=== PATIENT | female | born 1935 | race Hispanic/Latino ===

== ENCOUNTER 2022-02-18 16:36 | Inpatient (IN) | payer OTHER ==
[~2022-02-18] VITALS: Ht 157.5 cm; Wt 61.9 kg
[~2022-02-18 16:36] MED LIST: ETOMIDATE 20MG VIAL ONE; SUCCINYLCHOLINE CHLORIDE 20 MG/ML 10 ML VIAL ONE
[2022-02-18 22:02] VITALS: BP 110/48
[2022-02-18] MEDS ORDERED: ACETAMINOPHEN 650 MG SUPPOSITORY RC PRN (23:00)
[2022-02-18] MEDS ORDERED: ACETAMINOPHEN 325 MG TAB PO PRN (23:00)
[2022-02-18] MEDS ORDERED: LACTATED RINGERS 1000ML 1,000 ML IV SCH (23:00)
[2022-02-18] MEDS ORDERED: ALBUTEROL 0.083% 2.5 MG/3 ML INH IH PRN (23:00)
[2022-02-19] VITALS (24 sets, daily range): BP systolic 82–154; BP diastolic 29–88
[2022-02-19] MEDS ORDERED: BUME1TAB6 PO (02:42)
[2022-02-19] MEDS ORDERED: MONT-39 PO (02:42)
[2022-02-19] MEDS ORDERED: CILO100T PO (02:42)
[2022-02-19] MEDS ORDERED: ATOR40TA71 PO (02:42)
[2022-02-19] MEDS ORDERED: ISOS30TA92 PO (02:42)
[2022-02-19] MEDS ORDERED: CLOP75TA32 PO (02:42)
[2022-02-19] MEDS ORDERED: NITR0.4T50 PO (02:42)
[2022-02-19] MEDS ORDERED: HYDR-3421 PO (02:42)
[2022-02-19] MEDS ORDERED: AMLO-257 PO (02:42)
[2022-02-19] MEDS ORDERED: FENO160T16 PO (02:42)
[2022-02-19 03:57] LABS: HEMATOCRIT 30.7 % (36-48); MEAN CORPUSCULAR HGB CONC 31.3 g/dL (32.0-36.0); RED BLOOD CELL COUNT(AUTO) 3.1 MIL/uL (4.00-5.50); RED CELL DISTRIBUTION WIDTH 16.5 % (11.0-15.5); WHITE BLOOD COUNT (AUTO) 4.3 K/uL (4.8-10.8)
[2022-02-19 04:08] LABS: INR 1.21 (0.85-1.15)
[2022-02-19 04:10] LABS: CREATININE 2.8 mg/dL (0.5-1.5); MAGNESIUM 1.7 mg/dL (1.80-2.40); PHOSPHORUS 4.3 mg/dL (2.5-4.9)
[2022-02-19] MEDS ORDERED: MAGNESIUM 2GM PREMIX 50ML 50 ML IV SCH (05:00)
[2022-02-19 08:41] LABS: ABG BASE EXCESS 3.8 mmol/L (-2.0-3.0); ABG HCO3 29.1 mmol/L (21.0-28.0); ABG OXYGEN SATURATION 91.4 % (95.0-99.0); ABG PCO2 47 mmHg (32-45)
[2022-02-19] MEDS ORDERED: EPINEPHRINE PF 1MG AMP 10 MG in 0.9% NACL 250ML 240 ML IV PRN ×2 (10:30→14:00)
[2022-02-19] MEDS ORDERED: NOREPINEPHRINE BITARTRATE 8 MG in 0.9% NACL 250ML 250 ML IV PRN (10:30)
[2022-02-19] MEDS ORDERED: AMINOCAPROIC ACID 5,000MG VIAL 15,000 MG in 0.9% NACL 500ML IV.SOLN 420 ML IV PRN (10:30)
[2022-02-19] MEDS ORDERED: LIDOCAINE PF 100MG/5ML (2%) SYRINGE 5ML ONE ×3 (11:54→12:00)
[2022-02-19] MEDS ORDERED: ESMOLOL HCL 10 MG/ML 10 ML VIAL ONE (11:54)
[2022-02-19] MEDS ORDERED: PROTAMINE SULFATE 10 MG/ML 25ML VIAL IV ONE (11:54)
[2022-02-19] MEDS ORDERED: HEPARIN 10,000 UNIT/10ML (1,000 UNIT/ML) VIAL ONE (11:54)
[2022-02-19] MEDS ORDERED: EPINEPHRINE PF 1MG AMP ONE (11:54)
[2022-02-19] MEDS ORDERED: AMINOCAPROIC ACID 5,000MG VIAL ONE ×2 (11:54→12:03)
[2022-02-19] MEDS ORDERED: SODIUM BICARB 50MEQ 50ML VIAL 150 ML ONE (11:54)
[2022-02-19] MEDS ORDERED: NOREPINEPHRINE BITARTRATE 1 MG/1 ML ML IV ONE (11:54)
[2022-02-19] MEDS ORDERED: FENTANYL CITRATE PF 50 MCG/1 ML 20ML VIAL IJ ONE (11:56)
[2022-02-19] MEDS ORDERED: ROCURONIUM 10MG/1ML SYR 10 MG/ML ML ONE (11:56)
[2022-02-19] MEDS ORDERED: MIDAZOLAM HCL 1 MG/ML 2ML VIAL ONE (11:56)
[2022-02-19] MEDS ORDERED: PROPOFOL 10 MG/ML 20ML VIAL IV ONE (11:56)
[2022-02-19] MEDS ORDERED: KETAMINE 50MG/ML SYRINGE 50 MG/ML DISP.SYRIN IV ONE (11:57)
[2022-02-19] MEDS ORDERED: SODIUM BICARB 50MEQ 50ML VIAL 50 ML ONE (12:03)
[2022-02-19] MEDS ORDERED: NITROGLYCERIN 50MG/D5W 250ML 1 BOT ONE (12:08)
[2022-02-19] MEDS ORDERED: CEFAZOLIN SODIUM 1 GM VIAL ONE ×3 (13:18→13:28)
[2022-02-19] MEDS ORDERED: PAPAVERINE HCL 30 MG/ML 2ML VIAL ONE (13:26)
[2022-02-19 13:35] LABS: ABG BASE EXCESS -0.3 mmol/L (-2.0-3.0); ABG HCO3 23.4 mmol/L (21.0-28.0); ABG OXYGEN SATURATION 99.8 % (95.0-99.0); ABG PCO2 34 mmHg (32-45)
[2022-02-19] MEDS ORDERED: 0.9%NACL 1000ML 1,000 ML IV SCH (14:00)
[2022-02-19] MEDS ORDERED: PROPOFOL 1000 MG/100 ML 100 ML IV PRN (14:00)
[2022-02-19] MEDS ORDERED: ONDANSETRON 4MG INJ IV PRN (14:00)
[2022-02-19] MEDS ORDERED: NITROGLYCERIN 50MG/D5W 250ML 250 BOT IV SCH (14:00)
[2022-02-19] MEDS ORDERED: MORPHINE 2 MG SYG IV PRN ×2 (14:00→14:30)
[2022-02-19] MEDS ORDERED: DEXTROSE 50%-WATER 50 ML DISP.SYRIN IV PRN (14:00)
[2022-02-19] MEDS ORDERED: CALCIUM GLUC 1GM 1 GM in 0.9%NACL 50ML 50 ML IV PRN (14:00)
[2022-02-19] MEDS ORDERED: ACETAMINOPHEN 650 MG SUPPOSITORY RC PRN (14:00)
[2022-02-19] MEDS ORDERED: POTASSIUM CHLORIDE 20MEQ/100ML 100 ML IV PRN (14:00)
[2022-02-19] MEDS ORDERED: NOREPINEPHRIN 4MG/NS 250ML 250 ML IV PRN (14:00)
[2022-02-19] MEDS ORDERED: TRAMADOL HCL 50 MG TABLET PO PRN (14:00)
[2022-02-19] MEDS ORDERED: 0.9%NACL 10ML VIAL IVP PRN (14:00)
[2022-02-19] MEDS ORDERED: INSULIN REGULAR, HUMAN 3ML 100 UNIT in 0.9%NACL 100ML 99 ML IV SCH ×2 (14:00)
[2022-02-19] MEDS ORDERED: AMINOCAPROIC ACID 5,000MG VIAL 15,000 MG in 0.9% NACL 250ML 250 ML IV SCH (14:00)
[2022-02-19] MEDS ORDERED: POTASSIUM PHOS 15 mMOL+NS250ML 250 ML IV PRN (14:00)
[2022-02-19] MEDS ORDERED: GLUCAGON 1MG KIT 1 MG ML IM PRN (14:00)
[2022-02-19] MEDS ORDERED: 0.9% NACL 500ML IV.SOLN 500 ML IV SCH (14:00)
[2022-02-19] MEDS ORDERED: ALBUMIN (HUMAN) 5% 250 ML IV PRN (14:00)
[2022-02-19] MEDS ORDERED: 0.9%NACL 50ML 50 ML IV SCH (14:30)
[2022-02-19 16:09] LABS: ABG BASE EXCESS -2.4 mmol/L (-2.0-3.0); ABG HCO3 21.7 mmol/L (21.0-28.0); ABG OXYGEN SATURATION 99.7 % (95.0-99.0); ABG PCO2 34 mmHg (32-45)
[2022-02-19 16:16] LABS: ABG BASE EXCESS 3.2 mmol/L (-2.0-3.0); ABG HCO3 27.4 mmol/L (21.0-28.0); ABG OXYGEN SATURATION 99.7 % (95.0-99.0); ABG PCO2 40 mmHg (32-45)
[2022-02-19] MEDS ORDERED: ASPIRIN 81MG CHEW TAB NG SCH (17:00)
[2022-02-19 17:11] LABS: ABG BASE EXCESS -5.2 mmol/L (-2.0-3.0); ABG HCO3 18.8 mmol/L (21.0-28.0); ABG OXYGEN SATURATION 99.4 % (95.0-99.0); ABG PCO2 32 mmHg (32-45)
[2022-02-19 17:18] LABS: ABG OXYGEN SATURATION 88.3 % (95.0-99.0); BASE EXCESS,VENOUS BLOOD GAS -4.5 (-2.0-3.0); HCO3,VENOUS BLOOD GAS 20.5 (21.0-28.0); PCO2,VENOUS BLOOD GAS 37 (32-45); PH,VENOUS BLOOD GAS 7.356 (7.350-7.450)
[2022-02-19] MEDS: SODIUM BICARB 50MEQ 50ML VIAL IV PRN ×3 (17:27→18:24)
[2022-02-19 17:31] LABS: HEMATOCRIT 30.1 % (36-48); MEAN CORPUSCULAR HEMOGLOBIN 29.8 pg (27.0-33.0); MEAN CORPUSCULAR HGB CONC 32.2 g/dL (32.0-36.0); MEAN CORPUSCULAR VOLUME 92.6 fL (79-99); PLATELET COUNT (AUTO) 66 K/uL (130-400); RED BLOOD CELL COUNT(AUTO) 3.25 MIL/uL (4.00-5.50); RED CELL DISTRIBUTION WIDTH 17.7 % (11.0-15.5); WHITE BLOOD COUNT (AUTO) 20.5 K/uL (4.8-10.8)
[2022-02-19 17:42] LABS: INR 1.92 (0.85-1.15); PROTHROMBIN TIME 19.7 SEC (9.6-11.6)
[2022-02-19 17:46] LABS: CREATININE 2.3 mg/dL (0.5-1.5); MAGNESIUM 1.8 mg/dL (1.80-2.40); PHOSPHORUS 4.8 mg/dL (2.5-4.9); POTASSIUM 3.6 mmol/L (3.5-5.1)
[2022-02-19 17:47] LABS: CHOLESTEROL 66 mg/dL (<200); HDL CHOLESTEROL 30 mg/dL (35-85); LDL DIRECT 29 mg/dL (0-99); TRIGLYCERIDES 69 mg/dL (30-200)
[2022-02-19] MEDS: MAGNESIUM 2GM PREMIX 50ML 50 ML IV PRN (18:24)
[2022-02-19 18:34] LABS: ABG BASE EXCESS 2.4 mmol/L (-2.0-3.0); ABG HCO3 24.6 mmol/L (21.0-28.0); ABG OXYGEN SATURATION 98.8 % (95.0-99.0); ABG PCO2 30 mmHg (32-45)
[2022-02-19] MEDS: CALCIUM GLUC 1GM/10ML VIAL IVPB SCH (18:45)
[2022-02-19 20:01] LABS: ABG BASE EXCESS -0.4 mmol/L (-2.0-3.0); ABG HCO3 22.9 mmol/L (21.0-28.0); ABG OXYGEN SATURATION 98.7 % (95.0-99.0); ABG PCO2 33 mmHg (32-45)
[2022-02-19] MEDS: ATORVASTATIN 40 MG TABLET PO SCH (21:00)
[2022-02-19 21:22] LABS: ABG BASE EXCESS -0.4 mmol/L (-2.0-3.0); ABG HCO3 23.3 mmol/L (21.0-28.0); ABG OXYGEN SATURATION 98.7 % (95.0-99.0); ABG PCO2 35 mmHg (32-45)
[2022-02-19] MEDS: CEFAZOLIN SODIUM 1 GM VIAL IV SCH (21:30)
[2022-02-19] MEDS: FAMOTIDINE 20MG VIAL IV SCH (21:31)
[2022-02-19 22:27] LABS: ABG BASE EXCESS -0.3 mmol/L (-2.0-3.0); ABG HCO3 23.6 mmol/L (21.0-28.0); ABG OXYGEN SATURATION 98.5 % (95.0-99.0); ABG PCO2 35 mmHg (32-45)
[2022-02-19] MEDS: NOREPINEPHRIN 8MG/250ML NS PMX 250 ML IV PRN (22:52)
[2022-02-19 22:56] LABS: POTASSIUM 3.7 mmol/L (3.5-5.1)
[2022-02-19 23:01] LABS: MAGNESIUM 2.4 mg/dL (1.80-2.40)
[2022-02-19 23:32] LABS: ABG BASE EXCESS 0.1 mmol/L (-2.0-3.0); ABG HCO3 24.8 mmol/L (21.0-28.0); ABG OXYGEN SATURATION 98.6 % (95.0-99.0); ABG PCO2 40 mmHg (32-45)
[2022-02-20] VITALS (110 sets, daily range): BP systolic 54–170; BP diastolic 0–65
[2022-02-20 00:27] LABS: ABG BASE EXCESS -0.9 mmol/L (-2.0-3.0); ABG HCO3 23.2 mmol/L (21.0-28.0); ABG OXYGEN SATURATION 98.4 % (95.0-99.0); ABG PCO2 36 mmHg (32-45)
[2022-02-20] MEDS: SODIUM BICARB 50MEQ 50ML VIAL IV PRN (00:51)
[2022-02-20 01:37] LABS: ABG BASE EXCESS 3.6 mmol/L (-2.0-3.0); ABG OXYGEN SATURATION 98.5 % (95.0-99.0); ABG PCO2 36 mmHg (32-45)
[2022-02-20] MEDS: CALCIUM GLUC 1GM/10ML VIAL IVPB SCH (01:48)
[2022-02-20 02:51] LABS: ABG BASE EXCESS 1.4 mmol/L (-2.0-3.0); ABG HCO3 24.6 mmol/L (21.0-28.0); ABG OXYGEN SATURATION 98.5 % (95.0-99.0); ABG PCO2 33 mmHg (32-45)
[2022-02-20] MEDS: CEFAZOLIN SODIUM 1 GM VIAL IV SCH ×2 (03:41→10:54)
[2022-02-20 03:55] LABS: HEMATOCRIT 24.5 % (36-48); MEAN CORPUSCULAR HGB CONC 33.5 g/dL (32.0-36.0); MEAN CORPUSCULAR VOLUME 89.7 fL (79-99); RED BLOOD CELL COUNT(AUTO) 2.73 MIL/uL (4.00-5.50); RED CELL DISTRIBUTION WIDTH 19.8 % (11.0-15.5); WHITE BLOOD COUNT (AUTO) 15.5 K/uL (4.8-10.8)
[2022-02-20 04:02] LABS: ABG BASE EXCESS 1.2 mmol/L (-2.0-3.0); ABG HCO3 23.6 mmol/L (21.0-28.0); ABG PCO2 31 mmHg (32-45)
[2022-02-20 04:09] LABS: INR 1.51 (0.85-1.15); PROTHROMBIN TIME 15.9 SEC (9.6-11.6)
[2022-02-20 04:11] LABS: PARTIAL THROMBOPLASTIN TIME 33.7 SEC (26.3-35.5)
[2022-02-20 04:14] LABS: CREATININE 2.8 mg/dL (0.5-1.5); MAGNESIUM 2.5 mg/dL (1.80-2.40); PHOSPHORUS 4.2 mg/dL (2.5-4.9); POTASSIUM 3.9 mmol/L (3.5-5.1)
[2022-02-20 05:28] LABS: ABG BASE EXCESS 4.1 mmol/L (-2.0-3.0); ABG HCO3 27.3 mmol/L (21.0-28.0); ABG OXYGEN SATURATION 98.7 % (95.0-99.0); ABG PCO2 35 mmHg (32-45)
[2022-02-20 07:41] LABS: ABG BASE EXCESS 0.2 mmol/L (-2.0-3.0); ABG HCO3 24.5 mmol/L (21.0-28.0); ABG OXYGEN SATURATION 97.2 % (95.0-99.0); ABG PCO2 38 mmHg (32-45)
[2022-02-20] MEDS: TRAMADOL HCL 50 MG TABLET PO PRN ×3 (08:30→21:07)
[2022-02-20 09:42] LABS: ABG BASE EXCESS -1.5 mmol/L (-2.0-3.0); ABG HCO3 23.1 mmol/L (21.0-28.0); ABG OXYGEN SATURATION 94.5 % (95.0-99.0); ABG PCO2 38 mmHg (32-45)
[2022-02-20 09:48] LABS: ABG OXYGEN SATURATION 98.6 % (95.0-99.0); ABG PCO2 39 mmHg (32-45)
[2022-02-20 10:19] LABS: HEMATOCRIT 21.4 % (36-48); MEAN CORPUSCULAR HEMOGLOBIN 30.5 pg (27.0-33.0); MEAN CORPUSCULAR HGB CONC 33.2 g/dL (32.0-36.0); MEAN CORPUSCULAR VOLUME 91.8 fL (79-99); PLATELET COUNT (AUTO) 68 K/uL (130-400); RED BLOOD CELL COUNT(AUTO) 2.33 MIL/uL (4.00-5.50); RED CELL DISTRIBUTION WIDTH 20.3 % (11.0-15.5); WHITE BLOOD COUNT (AUTO) 13.1 K/uL (4.8-10.8)
[2022-02-20 10:27] LABS: CREATININE 2.9 mg/dL (0.5-1.5); POTASSIUM 4.2 mmol/L (3.5-5.1)
[2022-02-20] MEDS: ASPIRIN 81MG CHEW TAB PO SCH (10:54)
[2022-02-20 10:58] LABS: MAN.DIFF COMMENT-IMPRESSION MANUAL DIFFERENTIAL; MONOCYTES % (MANUAL) 2 % (2-9); PLATELET MORPHOLOGY COMMENT DECREASED; SEGMENTED NEUTROPHILS % 98 % (40-70)
[2022-02-20 14:39] LABS: HEMATOCRIT 18.4 % (36-48)
[2022-02-20] MEDS ORDERED: GLUCAGON 1MG KIT 1 MG ML IM PRN (21:00)
[2022-02-20] MEDS ORDERED: DEXTROSE 50%-WATER 50 ML DISP.SYRIN IV PRN (21:00)
[2022-02-20] MEDS: FAMOTIDINE 20MG VIAL IV SCH (21:07)
[2022-02-20] MEDS: ATORVASTATIN 40 MG TABLET PO SCH (21:08)
[2022-02-20] MEDS: INSULIN HUMULIN R 100 UNIT/ML 3ML SQ SCH (21:10)
[2022-02-21] VITALS (54 sets, daily range): BP systolic 79–154; BP diastolic 24–70
[2022-02-21 04:44] LABS: HEMATOCRIT 25.6 % (36-48); MEAN CORPUSCULAR HEMOGLOBIN 30.2 pg (27.0-33.0); MEAN CORPUSCULAR HGB CONC 32.8 g/dL (32.0-36.0); MEAN CORPUSCULAR VOLUME 92.1 fL (79-99); RED BLOOD CELL COUNT(AUTO) 2.78 MIL/uL (4.00-5.50); RED CELL DISTRIBUTION WIDTH 19.8 % (11.0-15.5); WHITE BLOOD COUNT (AUTO) 16.3 K/uL (4.8-10.8)
[2022-02-21 05:09] LABS: CREATININE 3.5 mg/dL (0.5-1.5); POTASSIUM 4.3 mmol/L (3.5-5.1)
[2022-02-21] MEDS: INSULIN HUMULIN R 100 UNIT/ML 3ML SQ SCH ×4 (06:44→21:00)
[2022-02-21] MEDS: ASPIRIN 81MG CHEW TAB PO SCH (09:08)
[2022-02-21] MEDS: MIDODRINE HCL 5 MG TABLET PO SCH ×2 (10:57→18:04)
[2022-02-21] MEDS ORDERED: ALBUMIN (HUMAN) 25% 100 ML IV ONE (12:54)
[2022-02-21] MEDS ORDERED: HEPARIN 5,000 UNIT VIAL IV SCH (14:30)
[2022-02-21] MEDS: ALBUMIN (HUMAN) 25% 100 ML IV PRN (14:34)
[2022-02-21] MEDS ORDERED: DOBUTAMINE 250MG/D5 250ML 250 ML IV ONE (17:55)
[2022-02-21] MEDS ORDERED: DOBUTAMINE HCL 1,000 MG in DEXTROSE 5%-WATER 250 ML IV SCH (18:00)
[2022-02-21 18:35] LABS: ABG BASE EXCESS -4.1 mmol/L (-2.0-3.0); ABG OXYGEN SATURATION 98.2 % (95.0-99.0); ABG PCO2 53 mmHg (32-45)
[2022-02-21] MEDS ORDERED: CALCIUM GLUC 1GM/10ML VIAL IVPB SCH (19:00)
[2022-02-21] MEDS: SODIUM BICARB 50MEQ 50ML VIAL IV PRN (19:00)
[2022-02-21 19:08] LABS: POTASSIUM 3.6 mmol/L (3.5-5.1)
[2022-02-21] MEDS: SODIUM BICARB 50MEQ 50ML VIAL IV SCH (19:30)
[2022-02-21] MEDS ORDERED: [UNRECOGNIZED DRUG - OTHER] IV ONE (19:30)
[2022-02-21] MEDS ORDERED: CALCIUM GLUC IV ONE (19:30)
[2022-02-21 20:40] LABS: CREATININE 2.2 mg/dL (0.5-1.5)
[2022-02-21 20:54] LABS: ABG BASE EXCESS -2.4 mmol/L (-2.0-3.0); ABG HCO3 26.3 mmol/L (21.0-28.0); ABG OXYGEN SATURATION 97.8 % (95.0-99.0); ABG PCO2 70 mmHg (32-45)
[2022-02-21] MEDS: FAMOTIDINE 20MG VIAL IV SCH (21:10)
[2022-02-21 21:28] LABS: HEPATITIS B SURFACE ANTIGEN Non-Reactive (Negative)
[2022-02-21 21:46] LABS: ABG BASE EXCESS -0.5 mmol/L (-2.0-3.0); ABG HCO3 26.1 mmol/L (21.0-28.0); ABG OXYGEN SATURATION 98.1 % (95.0-99.0); ABG PCO2 54 mmHg (32-45)
[2022-02-21] MEDS ORDERED: 0.9%NACL 100ML 200 ML ONE (21:53)
[2022-02-21] MEDS ORDERED: SUCCINYLCHOLINE 200MG/10ML SYR IVP SCH (22:00)
[2022-02-21] MEDS ORDERED: CALCIUM GLUC 1GM/10ML VIAL IV SCH (22:00)
[2022-02-21] MEDS: DEXMEDETOMIDINE 400MCG/NS100ML IV SCH (22:00)
[2022-02-21] MEDS ORDERED: ETOMIDATE 20MG VIAL IVP SCH (22:00)
[2022-02-21 22:02] LABS: BASOPHILS % (AUTO) 0.2 % (0.0-5.0); HEMATOCRIT 24.7 % (36-48); LYMPHOCYTES % (AUTO) 2.2 % (21.0-51.0); MEAN CORPUSCULAR HEMOGLOBIN 29.6 pg (27.0-33.0); MEAN CORPUSCULAR HGB CONC 32.4 g/dL (32.0-36.0); MEAN CORPUSCULAR VOLUME 91.5 fL (79-99); MONOCYTES % (AUTO) 5.2 % (3.0-13.0); PLATELET COUNT (AUTO) 34 K/uL (130-400); RED CELL DISTRIBUTION WIDTH 19.9 % (11.0-15.5); WHITE BLOOD COUNT (AUTO) 15.9 K/uL (4.8-10.8)
[2022-02-21 22:50] LABS: ABG BASE EXCESS 2.7 mmol/L (-2.0-3.0); ABG OXYGEN SATURATION 98.3 % (95.0-99.0); ABG PCO2 35 mmHg (32-45)
[2022-02-21] MEDS ORDERED: CALCIUM GLUC 1GM 1 GM in 0.9%NACL 100ML 100 ML IV SCH (23:30)
[2022-02-22] VITALS (77 sets, daily range): BP systolic 90–187; BP diastolic 27–72
[2022-02-22 00:05] LABS: ABG BASE EXCESS 0.1 mmol/L (-2.0-3.0); ABG HCO3 23.2 mmol/L (21.0-28.0); ABG OXYGEN SATURATION 98.7 % (95.0-99.0); ABG PCO2 32 mmHg (32-45)
[2022-02-22] MEDS ORDERED: CALCIUM GLUC 1GM/10ML VIAL ONE ×3 (00:05→04:23)
[2022-02-22] MEDS ORDERED: 0.9%NACL 100ML 100 ML ONE ×2 (00:09→03:17)
[2022-02-22] MEDS: ZOSYN 3.375GM +NS 50ML IV SCH ×3 (00:15→22:14)
[2022-02-22 01:08] LABS: ABG BASE EXCESS 0.9 mmol/L (-2.0-3.0); ABG HCO3 23.6 mmol/L (21.0-28.0); ABG PCO2 32 mmHg (32-45)
[2022-02-22 02:09] LABS: ABG BASE EXCESS -0.2 mmol/L (-2.0-3.0); ABG HCO3 22.6 mmol/L (21.0-28.0); ABG OXYGEN SATURATION 98.8 % (95.0-99.0); ABG PCO2 30 mmHg (32-45)
[2022-02-22] MEDS: DEXMEDETOMIDINE 400MCG/NS100ML IV SCH ×3 (02:35→22:16)
[2022-02-22] MEDS: MIDODRINE HCL 5 MG TABLET PO SCH ×3 (03:02→17:32)
[2022-02-22 03:05] LABS: ABG HCO3 21.8 mmol/L (21.0-28.0); ABG OXYGEN SATURATION 98.6 % (95.0-99.0); ABG PCO2 30 mmHg (32-45)
[2022-02-22 04:05] LABS: BASOPHILS % (AUTO) 0.1 % (0.0-5.0); HEMATOCRIT 25.5 % (36-48); LYMPHOCYTES % (AUTO) 4.1 % (21.0-51.0); MEAN CORPUSCULAR HEMOGLOBIN 30.5 pg (27.0-33.0); MEAN CORPUSCULAR HGB CONC 33.3 g/dL (32.0-36.0); MEAN CORPUSCULAR VOLUME 91.4 fL (79-99); MONOCYTES % (AUTO) 6.5 % (3.0-13.0); NEUTROPHILS % (AUTO) 88.8 % (40.0-77.0); PLATELET COUNT (AUTO) 40 K/uL (130-400); RED BLOOD CELL COUNT(AUTO) 2.79 MIL/uL (4.00-5.50); WHITE BLOOD COUNT (AUTO) 15.4 K/uL (4.8-10.8)
[2022-02-22 04:07] LABS: ABG BASE EXCESS -1.6 mmol/L (-2.0-3.0); ABG HCO3 20.7 mmol/L (21.0-28.0); ABG OXYGEN SATURATION 98.6 % (95.0-99.0); ABG PCO2 27 mmHg (32-45)
[2022-02-22] MEDS: SODIUM BICARB 50MEQ 50ML VIAL IV PRN ×3 (04:29→13:09)
[2022-02-22 04:32] LABS: ALBUMIN 2.6 g/dL (3.5-5.0); BILIRUBIN,TOTAL 1.4 mg/dL (0.2-1.0); CREATININE 2.5 mg/dL (0.5-1.5); PHOSPHORUS 4.3 mg/dL (2.5-4.9); POTASSIUM 3.9 mmol/L (3.5-5.1); TOTAL PROTEIN, SERUM 4.6 g/dL (6.0-8.3)
[2022-02-22 05:05] LABS: ABG BASE EXCESS 0.1 mmol/L (-2.0-3.0); ABG HCO3 22.2 mmol/L (21.0-28.0); ABG OXYGEN SATURATION 98.6 % (95.0-99.0); ABG PCO2 27 mmHg (32-45)
[2022-02-22] MEDS: LEVOTHYROXINE 125 MCG TABLET NG SCH (05:16)
[2022-02-22] MEDS: INSULIN HUMULIN R 100 UNIT/ML 3ML SQ SCH ×4 (05:31→20:38)
[2022-02-22 07:08] LABS: ABG BASE EXCESS -1.1 mmol/L (-2.0-3.0); ABG HCO3 21.4 mmol/L (21.0-28.0); ABG OXYGEN SATURATION 98.6 % (95.0-99.0); ABG PCO2 28 mmHg (32-45)
[2022-02-22 09:30] LABS: ABG BASE EXCESS -1.8 mmol/L (-2.0-3.0); ABG HCO3 20.6 mmol/L (21.0-28.0); ABG OXYGEN SATURATION 98.6 % (95.0-99.0); ABG PCO2 27 mmHg (32-45)
[2022-02-22] MEDS: ASPIRIN 81MG CHEW TAB PO SCH (10:12)
[2022-02-22 13:06] LABS: ABG HCO3 20.9 mmol/L (21.0-28.0); ABG OXYGEN SATURATION 98.3 % (95.0-99.0); ABG PCO2 29 mmHg (32-45)
[2022-02-22 17:25] LABS: ABG BASE EXCESS 3.7 mmol/L (-2.0-3.0); ABG OXYGEN SATURATION 98.3 % (95.0-99.0); ABG PCO2 36 mmHg (32-45)
[2022-02-22] MEDS: LEVOTHYROXINE 25 MCG TABLET NG SCH (17:32)
[2022-02-22] MEDS: SODIUM BICARB 50MEQ 50ML VIAL IV SCH (17:33)
[2022-02-22] MEDS: CALCIUM GLUC 1GM 1 GM in 0.9%NACL 100ML 100 ML IV SCH (17:49)
[2022-02-22] MEDS: ATORVASTATIN 40 MG TABLET NG SCH (20:37)
[2022-02-22] MEDS: FAMOTIDINE 20MG VIAL IV SCH (20:37)
[2022-02-22 20:46] LABS: ABG BASE EXCESS 3.6 mmol/L (-2.0-3.0); ABG HCO3 27.2 mmol/L (21.0-28.0); ABG OXYGEN SATURATION 97.2 % (95.0-99.0); ABG PCO2 37 mmHg (32-45)
[2022-02-22] MEDS ORDERED: ATORVASTATIN 40 MG TABLET NG SCH (21:00)
[2022-02-23] VITALS (58 sets, daily range): BP systolic 82–175; BP diastolic 22–59
[2022-02-23 01:00] LABS: ABG BASE EXCESS 1.8 mmol/L (-2.0-3.0); ABG HCO3 24.6 mmol/L (21.0-28.0); ABG OXYGEN SATURATION 95.1 % (95.0-99.0); ABG PCO2 32 mmHg (32-45)
[2022-02-23] MEDS: MIDODRINE HCL 5 MG TABLET PO SCH ×3 (02:56→18:28)
[2022-02-23 04:51] LABS: ABG BASE EXCESS 0.2 mmol/L (-2.0-3.0); ABG HCO3 23.5 mmol/L (21.0-28.0); ABG OXYGEN SATURATION 96.8 % (95.0-99.0); ABG PCO2 33 mmHg (32-45)
[2022-02-23 05:09] LABS: ALBUMIN 2.4 g/dL (3.5-5.0); BILIRUBIN,TOTAL 1.4 mg/dL (0.2-1.0); CREATININE 2.5 mg/dL (0.5-1.5); PHOSPHORUS 3.6 mg/dL (2.5-4.9); POTASSIUM 3.6 mmol/L (3.5-5.1); TOTAL PROTEIN, SERUM 4.6 g/dL (6.0-8.3)
[2022-02-23 05:10] LABS: BASOPHILS % (AUTO) 0.2 % (0.0-5.0); HEMATOCRIT 25.8 % (36-48); LYMPHOCYTES % (AUTO) 7.4 % (21.0-51.0); MEAN CORPUSCULAR HEMOGLOBIN 29.2 pg (27.0-33.0); MEAN CORPUSCULAR HGB CONC 32.6 g/dL (32.0-36.0); MEAN CORPUSCULAR VOLUME 89.6 fL (79-99); MONOCYTES % (AUTO) 7.1 % (3.0-13.0); NEUTROPHILS % (AUTO) 84.7 % (40.0-77.0); NUCLEATED RED BLOOD CELLS 0.1 % (0.0-0.19); PLATELET COUNT (AUTO) 35 K/uL (130-400); RED BLOOD CELL COUNT(AUTO) 2.88 MIL/uL (4.00-5.50)
[2022-02-23] MEDS ORDERED: CALCIUM GLUC 1GM/10ML VIAL ONE (06:36)
[2022-02-23] MEDS: INSULIN HUMULIN R 100 UNIT/ML 3ML SQ SCH ×4 (06:38→21:15)
[2022-02-23] MEDS: LEVOTHYROXINE 125 MCG TABLET NG SCH (06:39)
[2022-02-23] MEDS: LEVOTHYROXINE 25 MCG TABLET NG SCH (06:39)
[2022-02-23] MEDS: DEXMEDETOMIDINE 400MCG/NS100ML IV SCH ×2 (08:36→20:59)
[2022-02-23 09:14] LABS: ABG HCO3 23.2 mmol/L (21.0-28.0); ABG PCO2 32 mmHg (32-45)
[2022-02-23] MEDS: ZOSYN 3.375GM +NS 50ML IV SCH ×2 (10:02→22:33)
[2022-02-23] MEDS: ASPIRIN 81MG CHEW TAB PO SCH (10:03)
[2022-02-23 15:07] LABS: ABG BASE EXCESS -3.2 mmol/L (-2.0-3.0); ABG HCO3 20.4 mmol/L (21.0-28.0); ABG OXYGEN SATURATION 97.1 % (95.0-99.0); ABG PCO2 31 mmHg (32-45)
[2022-02-23] MEDS: SODIUM BICARB 50MEQ 50ML VIAL IV SCH (18:28)
[2022-02-23] MEDS: DOPAMINE 800MG/D5 250ML 250 ML IV PRN (18:56)
[2022-02-23 20:58] LABS: ABG BASE EXCESS -1.9 mmol/L (-2.0-3.0); ABG HCO3 21.8 mmol/L (21.0-28.0); ABG OXYGEN SATURATION 96.9 % (95.0-99.0); ABG PCO2 33 mmHg (32-45)
[2022-02-23] MEDS: ATORVASTATIN 40 MG TABLET NG SCH (21:00)
[2022-02-23] MEDS: FAMOTIDINE 20MG VIAL IV SCH (21:00)
[2022-02-24] VITALS (54 sets, daily range): BP systolic 89–188; BP diastolic 29–79
[2022-02-24] MEDS: MIDODRINE HCL 5 MG TABLET PO SCH ×3 (01:48→17:11)
[2022-02-24 02:54] LABS: ABG BASE EXCESS 3.9 mmol/L (-2.0-3.0); ABG HCO3 27.7 mmol/L (21.0-28.0); ABG PCO2 39 mmHg (32-45)
[2022-02-24 06:04] LABS: HEMATOCRIT 29.2 % (36-48); MEAN CORPUSCULAR HGB CONC 33.2 g/dL (32.0-36.0); MEAN CORPUSCULAR VOLUME 90.4 fL (79-99); RED BLOOD CELL COUNT(AUTO) 3.23 MIL/uL (4.00-5.50); RED CELL DISTRIBUTION WIDTH 19.2 % (11.0-15.5); WHITE BLOOD COUNT (AUTO) 13.3 K/uL (4.8-10.8)
[2022-02-24 06:16] LABS: INR 1.76 (0.85-1.15); PROTHROMBIN TIME 18.2 SEC (9.6-11.6)
[2022-02-24 06:18] LABS: PARTIAL THROMBOPLASTIN TIME 44.7 SEC (26.3-35.5)
[2022-02-24 06:20] LABS: CREATININE 3.5 mg/dL (0.5-1.5); MAGNESIUM 2.1 mg/dL (1.80-2.40); PHOSPHORUS 4.1 mg/dL (2.5-4.9); POTASSIUM 3.5 mmol/L (3.5-5.1)
[2022-02-24] MEDS: LEVOTHYROXINE 125 MCG TABLET NG SCH (06:24)
[2022-02-24] MEDS: LEVOTHYROXINE 25 MCG TABLET NG SCH (06:24)
[2022-02-24] MEDS: INSULIN HUMULIN R 100 UNIT/ML 3ML SQ SCH ×4 (06:32→21:00)
[2022-02-24 10:06] LABS: ABG BASE EXCESS 4.7 mmol/L (-2.0-3.0); ABG HCO3 28.3 mmol/L (21.0-28.0); ABG PCO2 38 mmHg (32-45)
[2022-02-24] MEDS: ZOSYN 3.375GM +NS 50ML IV SCH ×2 (11:23→22:39)
[2022-02-24] MEDS: ASPIRIN 81MG CHEW TAB PO SCH (11:23)
[2022-02-24] MEDS: DEXMEDETOMIDINE 400MCG/NS100ML IV SCH (11:24)
[2022-02-24] MEDS ORDERED: PHYTONADIONE 10 MG in 0.9%NACL 50ML 50 ML IVPB SCH (11:30)
[2022-02-24] MEDS ORDERED: VANCOMYCIN 1G 1 GM in 0.9% NACL 250ML 250 ML IV PRN (12:00)
[2022-02-24 17:10] LABS: ABG BASE EXCESS 5.4 mmol/L (-2.0-3.0); ABG HCO3 29.2 mmol/L (21.0-28.0); ABG OXYGEN SATURATION 97.3 % (95.0-99.0); ABG PCO2 40 mmHg (32-45)
[2022-02-24] MEDS ORDERED: ALBUMIN (HUMAN) 25% 100 ML IV PRN (17:30)
[2022-02-24] MEDS: ALBUMIN (HUMAN) 25% 100 ML IV PRN (17:36)
[2022-02-24] MEDS: CALCIUM GLUC 1GM 1 GM in 0.9%NACL 100ML 100 ML IV SCH (17:39)
[2022-02-24] MEDS: SODIUM BICARB 50MEQ 50ML VIAL IV SCH (19:30)
[2022-02-24] MEDS: ATORVASTATIN 40 MG TABLET NG SCH (20:39)
[2022-02-24] MEDS: FAMOTIDINE 20MG VIAL IV SCH (20:39)
[2022-02-24] MEDS: EPOETIN ALFA-EPBX (ESRD) 10,000 UNIT/ML VIAL SQ SCH (21:29)
[2022-02-24 23:04] LABS: ABG BASE EXCESS 1.8 mmol/L (-2.0-3.0); ABG HCO3 25.3 mmol/L (21.0-28.0); ABG OXYGEN SATURATION 97.4 % (95.0-99.0); ABG PCO2 35 mmHg (32-45)
[2022-02-25] VITALS (49 sets, daily range): BP systolic 89–173; BP diastolic 27–60
[2022-02-25] MEDS: MIDODRINE HCL 5 MG TABLET PO SCH ×3 (02:00→17:01)
[2022-02-25] MEDS: DEXMEDETOMIDINE 400MCG/NS100ML IV SCH (03:05)
[2022-02-25 04:29] LABS: ABG BASE EXCESS 2.2 mmol/L (-2.0-3.0); ABG HCO3 26.3 mmol/L (21.0-28.0); ABG OXYGEN SATURATION 97.6 % (95.0-99.0); ABG PCO2 39 mmHg (32-45)
[2022-02-25] MEDS: LEVOTHYROXINE 25 MCG TABLET NG SCH (05:19)
[2022-02-25] MEDS: LEVOTHYROXINE 125 MCG TABLET NG SCH (05:19)
[2022-02-25] MEDS: INSULIN HUMULIN R 100 UNIT/ML 3ML SQ SCH ×4 (05:20→23:37)
[2022-02-25 05:22] LABS: BASOPHILS % (AUTO) 0.4 % (0.0-5.0); EOSINOPHILS % (AUTO) 1.1 % (0.0-8.0); HEMATOCRIT 27.3 % (36-48); LYMPHOCYTES % (AUTO) 7.5 % (21.0-51.0); MEAN CORPUSCULAR HEMOGLOBIN 30.1 pg (27.0-33.0); MEAN CORPUSCULAR VOLUME 91.3 fL (79-99); MONOCYTES % (AUTO) 7.9 % (3.0-13.0); NEUTROPHILS % (AUTO) 82.7 % (40.0-77.0); PLATELET COUNT (AUTO) 50 K/uL (130-400); RED BLOOD CELL COUNT(AUTO) 2.99 MIL/uL (4.00-5.50); RED CELL DISTRIBUTION WIDTH 18.8 % (11.0-15.5); WHITE BLOOD COUNT (AUTO) 11.2 K/uL (4.8-10.8)
[2022-02-25 05:28] LABS: INR 1.19 (0.85-1.15); PROTHROMBIN TIME 12.8 SEC (9.6-11.6)
[2022-02-25 05:29] LABS: PARTIAL THROMBOPLASTIN TIME 39.3 SEC (26.3-35.5)
[2022-02-25 05:39] LABS: ALBUMIN 2.4 g/dL (3.5-5.0); CREATININE 2.3 mg/dL (0.5-1.5); PHOSPHORUS 2.9 mg/dL (2.5-4.9); POTASSIUM 3.5 mmol/L (3.5-5.1)
[2022-02-25 05:43] LABS: BILIRUBIN,TOTAL 2.1 mg/dL (0.2-1.0); MAGNESIUM 1.9 mg/dL (1.80-2.40)
[2022-02-25] MEDS: ASPIRIN 81MG CHEW TAB PO SCH (07:46)
[2022-02-25] MEDS: ZOSYN 3.375GM +NS 50ML IV SCH ×2 (10:13→22:35)
[2022-02-25 10:33] LABS: ABG BASE EXCESS 3.9 mmol/L (-2.0-3.0); ABG HCO3 27.4 mmol/L (21.0-28.0); ABG OXYGEN SATURATION 97.2 % (95.0-99.0); ABG PCO2 37 mmHg (32-45)
[2022-02-25] MEDS: IPRATROPIUM 0.5 MG/2.5 ML INH IH SCH ×2 (11:14→18:50)
[2022-02-25 16:38] LABS: ABG BASE EXCESS 1.1 mmol/L (-2.0-3.0); ABG HCO3 25.5 mmol/L (21.0-28.0); ABG PCO2 40 mmHg (32-45)
[2022-02-25] MEDS: FAMOTIDINE 20MG VIAL IV SCH (19:49)
[2022-02-25] MEDS: ATORVASTATIN 40 MG TABLET NG SCH (19:49)
[2022-02-25] MEDS: DOPAMINE 800MG/D5 250ML 250 ML IV PRN (20:18)
[2022-02-25 22:22] LABS: ABG BASE EXCESS 2.7 mmol/L (-2.0-3.0); ABG HCO3 26.9 mmol/L (21.0-28.0); ABG OXYGEN SATURATION 96.9 % (95.0-99.0); ABG PCO2 40 mmHg (32-45)
[2022-02-26] VITALS (117 sets, daily range): BP systolic 72–183; BP diastolic 23–51
[2022-02-26] MEDS: IPRATROPIUM 0.5 MG/2.5 ML INH IH SCH ×5 (00:18→23:48)
[2022-02-26] MEDS: MIDODRINE HCL 5 MG TABLET PO SCH ×3 (02:12→17:00)
[2022-02-26 04:25] LABS: ABG HCO3 25.1 mmol/L (21.0-28.0); ABG PCO2 38 mmHg (32-45)
[2022-02-26 04:46] LABS: HEMATOCRIT 26.5 % (36-48); MEAN CORPUSCULAR HEMOGLOBIN 30.7 pg (27.0-33.0); MEAN CORPUSCULAR HGB CONC 32.8 g/dL (32.0-36.0); MEAN CORPUSCULAR VOLUME 93.6 fL (79-99); RED BLOOD CELL COUNT(AUTO) 2.83 MIL/uL (4.00-5.50); RED CELL DISTRIBUTION WIDTH 18.5 % (11.0-15.5); WHITE BLOOD COUNT (AUTO) 11.9 K/uL (4.8-10.8)
[2022-02-26] MEDS: INSULIN HUMULIN R 100 UNIT/ML 3ML SQ SCH ×3 (04:52→17:00)
[2022-02-26] MEDS: DEXMEDETOMIDINE 400MCG/NS100ML IV SCH (04:54)
[2022-02-26 05:13] LABS: ALBUMIN 1.7 g/dL (3.5-5.0); BILIRUBIN,TOTAL 2.2 mg/dL (0.2-1.0); CREATININE 3.1 mg/dL (0.5-1.5); MAGNESIUM 1.7 mg/dL (1.80-2.40); PHOSPHORUS 3.8 mg/dL (2.5-4.9); POTASSIUM 3.7 mmol/L (3.5-5.1); TOTAL PROTEIN, SERUM 4.3 g/dL (6.0-8.3)
[2022-02-26] MEDS: LEVOTHYROXINE 125 MCG TABLET NG SCH (07:10)
[2022-02-26] MEDS: LEVOTHYROXINE 25 MCG TABLET NG SCH (07:11)
[2022-02-26] MEDS: DOPAMINE 800MG/D5 250ML 250 ML IV PRN (08:37)
[2022-02-26] MEDS: ASPIRIN 81MG CHEW TAB PO SCH (09:08)
[2022-02-26 09:21] LABS: ABG BASE EXCESS 0.2 mmol/L (-2.0-3.0); ABG HCO3 23.8 mmol/L (21.0-28.0); ABG OXYGEN SATURATION 97.4 % (95.0-99.0); ABG PCO2 36 mmHg (32-45)
[2022-02-26] MEDS: ZOSYN 3.375GM +NS 50ML IV SCH ×2 (10:12→22:58)
[2022-02-26] MEDS: NOREPINEPHRIN 8MG/250ML NS PMX 250 ML IV PRN (11:47)
[2022-02-26] MEDS: ATORVASTATIN 40 MG TABLET NG SCH (20:13)
[2022-02-26] MEDS: EPOETIN ALFA-EPBX (ESRD) 10,000 UNIT/ML VIAL SQ SCH (20:13)
[2022-02-26] MEDS: FAMOTIDINE 20MG VIAL IV SCH (20:13)
[2022-02-27] VITALS (99 sets, daily range): BP systolic 0–184; BP diastolic 0–82
[2022-02-27] MEDS: ACETAMINOPHEN 325 MG TAB PO PRN ×2 (01:15→17:49)
[2022-02-27] MEDS: MIDODRINE HCL 5 MG TABLET PO SCH ×4 (01:15→22:08)
[2022-02-27 03:03] LABS: HEMATOCRIT 27.3 % (36-48); MEAN CORPUSCULAR HEMOGLOBIN 30.6 pg (27.0-33.0); MEAN CORPUSCULAR VOLUME 92.9 fL (79-99); RED BLOOD CELL COUNT(AUTO) 2.94 MIL/uL (4.00-5.50); RED CELL DISTRIBUTION WIDTH 18.6 % (11.0-15.5)
[2022-02-27 03:16] LABS: CREATININE 2.4 mg/dL (0.5-1.5)
[2022-02-27] MEDS: LEVOTHYROXINE 125 MCG TABLET NG SCH (05:41)
[2022-02-27] MEDS: LEVOTHYROXINE 25 MCG TABLET NG SCH (05:43)
[2022-02-27] MEDS: INSULIN HUMULIN R 100 UNIT/ML 3ML SQ SCH ×4 (06:00→18:00)
[2022-02-27] MEDS: IPRATROPIUM 0.5 MG/2.5 ML INH IH SCH ×4 (06:41→23:15)
[2022-02-27] MEDS ORDERED: MIDODRINE HCL 5 MG TABLET ONE (08:09)
[2022-02-27] MEDS: ZOSYN 3.375GM +NS 50ML IV SCH ×2 (08:25→22:08)
[2022-02-27] MEDS: ASPIRIN 81MG CHEW TAB PO SCH (08:25)
[2022-02-27] MEDS: MAGNESIUM 2GM PREMIX 50ML 50 ML IV PRN (08:26)
[2022-02-27] MEDS ORDERED: MIDODRINE HCL 5 MG TABLET PO SCH (14:00)
[2022-02-27] MEDS: BALSAM PERU/CASTOR OIL 60 GM TUBE TP SCH ×2 (16:44→22:08)
[2022-02-27] MEDS: ATORVASTATIN 40 MG TABLET NG SCH (22:08)
[2022-02-27] MEDS: FAMOTIDINE 20MG VIAL IV SCH (22:08)
[2022-02-28] VITALS (75 sets, daily range): BP systolic 51–174; BP diastolic 25–89
[2022-02-28] MEDS: INSULIN HUMULIN R 100 UNIT/ML 3ML SQ SCH ×5 (01:00→23:32)
[2022-02-28 05:49] LABS: BASOPHILS % (AUTO) 0.2 % (0.0-5.0); EOSINOPHILS % (AUTO) 0.6 % (0.0-8.0); HEMATOCRIT 26.5 % (36-48); LYMPHOCYTES % (AUTO) 6.8 % (21.0-51.0); MEAN CORPUSCULAR HEMOGLOBIN 29.8 pg (27.0-33.0); MEAN CORPUSCULAR HGB CONC 31.7 g/dL (32.0-36.0); MONOCYTES % (AUTO) 10.6 % (3.0-13.0); PLATELET COUNT (AUTO) 84 K/uL (130-400); RED BLOOD CELL COUNT(AUTO) 2.82 MIL/uL (4.00-5.50); RED CELL DISTRIBUTION WIDTH 19.3 % (11.0-15.5)
[2022-02-28 06:03] LABS: ALBUMIN 1.6 g/dL (3.5-5.0); CREATININE 3.4 mg/dL (0.5-1.5); MAGNESIUM 2.3 mg/dL (1.80-2.40); PHOSPHORUS 4.8 mg/dL (2.5-4.9); POTASSIUM 4.2 mmol/L (3.5-5.1); TOTAL PROTEIN, SERUM 4.6 g/dL (6.0-8.3)
[2022-02-28] MEDS: IPRATROPIUM 0.5 MG/2.5 ML INH IH SCH ×3 (06:19→19:19)
[2022-02-28] MEDS: LEVOTHYROXINE 25 MCG TABLET NG SCH (07:18)
[2022-02-28] MEDS: LEVOTHYROXINE 125 MCG TABLET NG SCH (07:18)
[2022-02-28] MEDS: MIDODRINE HCL 5 MG TABLET PO SCH ×3 (07:18→20:03)
[2022-02-28] MEDS: ZOSYN 3.375GM +NS 50ML IV SCH ×2 (08:18→20:03)
[2022-02-28] MEDS: BALSAM PERU/CASTOR OIL 60 GM TUBE TP SCH (08:18)
[2022-02-28] MEDS: ASPIRIN 81MG CHEW TAB PO SCH (08:18)
[2022-02-28] MEDS: ACETAMINOPHEN 325 MG TAB PO PRN ×3 (08:20→23:31)
[2022-02-28] MEDS: NOREPINEPHRIN 8MG/250ML NS PMX 250 ML IV PRN (10:28)
[2022-02-28] MEDS ORDERED: ALBUMIN (HUMAN) 25% 100 ML IV PRN (11:30)
[2022-02-28] MEDS: ATORVASTATIN 40 MG TABLET NG SCH (20:03)
[2022-02-28] MEDS: EPOETIN ALFA-EPBX (ESRD) 10,000 UNIT/ML VIAL SQ SCH (20:04)
[2022-02-28] MEDS: FAMOTIDINE 20MG VIAL IV SCH (20:04)
[2022-02-28] MEDS ORDERED: ZOLPIDEM TARTRATE 5 MG TAB ONE (23:29)
[2022-02-28] MEDS ORDERED: ZOLPIDEM TARTRATE 5 MG TAB PO PRN (23:30)
[2022-03-01] VITALS (32 sets, daily range): BP systolic 69–147; BP diastolic 28–91
[2022-03-01] MEDS: IPRATROPIUM 0.5 MG/2.5 ML INH IH SCH ×4 (00:01→18:36)
[2022-03-01] MEDS: BALSAM PERU/CASTOR OIL 60 GM TUBE TP SCH ×3 (01:21→21:01)
[2022-03-01] MEDS: LEVOTHYROXINE 25 MCG TABLET NG SCH (05:49)
[2022-03-01] MEDS: LEVOTHYROXINE 125 MCG TABLET NG SCH (05:50)
[2022-03-01] MEDS: INSULIN HUMULIN R 100 UNIT/ML 3ML SQ SCH ×3 (05:52→15:45)
[2022-03-01] MEDS: MIDODRINE HCL 5 MG TABLET PO SCH ×3 (05:54→21:01)
[2022-03-01 06:31] LABS: HEMATOCRIT 25.9 % (36-48); MEAN CORPUSCULAR HEMOGLOBIN 30.6 pg (27.0-33.0); MEAN CORPUSCULAR HGB CONC 31.7 g/dL (32.0-36.0); MEAN CORPUSCULAR VOLUME 96.6 fL (79-99); NUCLEATED RED BLOOD CELLS 0.2 % (0.0-0.19); PLATELET COUNT (AUTO) 62 K/uL (130-400); RED BLOOD CELL COUNT(AUTO) 2.68 MIL/uL (4.00-5.50); RED CELL DISTRIBUTION WIDTH 20.4 % (11.0-15.5); WHITE BLOOD COUNT (AUTO) 13.5 K/uL (4.8-10.8)
[2022-03-01 06:43] LABS: CREATININE 2.7 mg/dL (0.5-1.5); POTASSIUM 3.6 mmol/L (3.5-5.1)
[2022-03-01] MEDS: ZOSYN 3.375GM +NS 50ML IV SCH ×2 (10:02→21:01)
[2022-03-01] MEDS: ASPIRIN 81MG CHEW TAB PO SCH (10:02)
[2022-03-01] MEDS: ATORVASTATIN 40 MG TABLET NG SCH (21:01)
[2022-03-01] MEDS: FAMOTIDINE 20MG VIAL IV SCH (21:01)
[2022-03-02] MEDS: IPRATROPIUM 0.5 MG/2.5 ML INH IH SCH ×3 (00:25→18:22)
[2022-03-02] MEDS ORDERED: LORAZEPAM 2 MG/ML 1 ML VIAL IM STA (00:33)
[2022-03-02 03:19] VITALS: BP 148/50
[2022-03-02 04:12] LABS: BASOPHILS % (AUTO) 0.3 % (0.0-5.0); EOSINOPHILS % (AUTO) 0.5 % (0.0-8.0); LYMPHOCYTES % (AUTO) 5.8 % (21.0-51.0); MEAN CORPUSCULAR HEMOGLOBIN 30.7 pg (27.0-33.0); MEAN CORPUSCULAR HGB CONC 31.8 g/dL (32.0-36.0); MEAN CORPUSCULAR VOLUME 96.6 fL (79-99); MONOCYTES % (AUTO) 6.9 % (3.0-13.0); NEUTROPHILS % (AUTO) 84.7 % (40.0-77.0); NUCLEATED RED BLOOD CELLS 0.3 % (0.0-0.19); PLATELET COUNT (AUTO) 84 K/uL (130-400); WHITE BLOOD COUNT (AUTO) 14.8 K/uL (4.8-10.8)
[2022-03-02 04:49] LABS: ALBUMIN 2.1 g/dL (3.5-5.0); BILIRUBIN,TOTAL 2.3 mg/dL (0.2-1.0); CREATININE 3.3 mg/dL (0.5-1.5); POTASSIUM 4.2 mmol/L (3.5-5.1)
[2022-03-02] MEDS: INSULIN HUMULIN R 100 UNIT/ML 3ML SQ SCH ×5 (06:00→23:52)
[2022-03-02] MEDS: LEVOTHYROXINE 25 MCG TABLET NG SCH (06:39)
[2022-03-02] MEDS: MIDODRINE HCL 5 MG TABLET PO SCH ×4 (06:39→21:18)
[2022-03-02] MEDS: LEVOTHYROXINE 125 MCG TABLET NG SCH (06:39)
[2022-03-02 06:42] VITALS: BP 124/54
[2022-03-02] MEDS: ASPIRIN 81MG CHEW TAB PO SCH (08:35)
[2022-03-02] MEDS: ZOSYN 3.375GM +NS 50ML IV SCH ×2 (08:35→21:17)
[2022-03-02] MEDS: BALSAM PERU/CASTOR OIL 60 GM TUBE TP SCH ×2 (08:35→21:19)
[2022-03-02 10:25] LABS: ABG BASE EXCESS -0.4 mmol/L (-2.0-3.0); ABG HCO3 24.4 mmol/L (21.0-28.0); ABG OXYGEN SATURATION 94.9 % (95.0-99.0); ABG PCO2 41 mmHg (32-45)
[2022-03-02 12:00] VITALS: BP 140/62
[2022-03-02 16:00] VITALS: BP 105/45
[2022-03-02 19:34] VITALS: BP 101/71
[2022-03-02] MEDS: FAMOTIDINE 20MG VIAL IV SCH (21:17)
[2022-03-02] MEDS: ATORVASTATIN 40 MG TABLET NG SCH (21:18)
[2022-03-02 23:36] VITALS: BP 139/33
[2022-03-03] VITALS (21 sets, daily range): BP systolic 102–162; BP diastolic 40–98
[2022-03-03] MEDS: IPRATROPIUM 0.5 MG/2.5 ML INH IH SCH ×5 (00:06→23:14)
[2022-03-03 03:36] LABS: BASOPHILS % (AUTO) 0.3 % (0.0-5.0); HEMATOCRIT 27.2 % (36-48); LYMPHOCYTES % (AUTO) 5.8 % (21.0-51.0); MEAN CORPUSCULAR HEMOGLOBIN 30.1 pg (27.0-33.0); MEAN CORPUSCULAR HGB CONC 31.6 g/dL (32.0-36.0); MEAN CORPUSCULAR VOLUME 95.1 fL (79-99); MONOCYTES % (AUTO) 7.8 % (3.0-13.0); NEUTROPHILS % (AUTO) 84.1 % (40.0-77.0); NUCLEATED RED BLOOD CELLS 0.3 % (0.0-0.19); PLATELET COUNT (AUTO) 128 K/uL (130-400); RED BLOOD CELL COUNT(AUTO) 2.86 MIL/uL (4.00-5.50); RED CELL DISTRIBUTION WIDTH 21.8 % (11.0-15.5); WHITE BLOOD COUNT (AUTO) 12.5 K/uL (4.8-10.8)
[2022-03-03 03:52] LABS: ALBUMIN 1.9 g/dL (3.5-5.0); BILIRUBIN,TOTAL 1.8 mg/dL (0.2-1.0); POTASSIUM 3.7 mmol/L (3.5-5.1); TOTAL PROTEIN, SERUM 4.8 g/dL (6.0-8.3)
[2022-03-03 04:12] LABS: B-TYPE NATRIURETIC PEPTIDE > 5000 pg/mL (0-100)
[2022-03-03] MEDS: LEVOTHYROXINE 25 MCG TABLET NG SCH (05:32)
[2022-03-03] MEDS: LEVOTHYROXINE 125 MCG TABLET NG SCH (05:33)
[2022-03-03] MEDS: MIDODRINE HCL 5 MG TABLET PO SCH ×3 (05:33→21:57)
[2022-03-03] MEDS: INSULIN HUMULIN R 100 UNIT/ML 3ML SQ SCH ×4 (05:34→23:55)
[2022-03-03] MEDS: ZOSYN 3.375GM +NS 50ML IV SCH ×2 (08:31→21:56)
[2022-03-03] MEDS: ASPIRIN 81MG CHEW TAB PO SCH (08:31)
[2022-03-03] MEDS: BALSAM PERU/CASTOR OIL 60 GM TUBE TP SCH ×2 (08:33→21:58)
[2022-03-03] MEDS: DEXAMETHASONE SOD PHOSPHATE 4 MG/ML 1ML VIAL IV SCH (09:13)
[2022-03-03] MEDS: ACETAMINOPHEN 325 MG TAB PO PRN (17:26)
[2022-03-03] MEDS ORDERED: 0.9%NACL 1000ML 2,000 ML IV ONE (17:57)
[2022-03-03] MEDS ORDERED: TRAMADOL HCL 50 MG TABLET PO PRN (19:00)
[2022-03-03] MEDS: FAMOTIDINE 20MG VIAL IV SCH (21:57)
[2022-03-03] MEDS: ATORVASTATIN 40 MG TABLET NG SCH (21:57)
[2022-03-03] MEDS: EPOETIN ALFA-EPBX (ESRD) 10,000 UNIT/ML VIAL SQ SCH (21:57)
[2022-03-03] MEDS: APIXABAN 2.5 MG TABLET PO SCH (21:57)
[2022-03-04] VITALS (8 sets, daily range): BP systolic 131–163; BP diastolic 45–79
[2022-03-04 03:20] LABS: BASOPHILS % (AUTO) 0.1 % (0.0-5.0); EOSINOPHILS % (AUTO) 0.1 % (0.0-8.0); HEMATOCRIT 27.6 % (36-48); LYMPHOCYTES % (AUTO) 3.3 % (21.0-51.0); MEAN CORPUSCULAR HEMOGLOBIN 30.2 pg (27.0-33.0); MEAN CORPUSCULAR HGB CONC 31.2 g/dL (32.0-36.0); MEAN CORPUSCULAR VOLUME 96.8 fL (79-99); MONOCYTES % (AUTO) 5.6 % (3.0-13.0); NEUTROPHILS % (AUTO) 89.9 % (40.0-77.0); NUCLEATED RED BLOOD CELLS 0.2 % (0.0-0.19); PLATELET COUNT (AUTO) 63 K/uL (130-400); RED BLOOD CELL COUNT(AUTO) 2.85 MIL/uL (4.00-5.50); RED CELL DISTRIBUTION WIDTH 22.9 % (11.0-15.5); WHITE BLOOD COUNT (AUTO) 14.9 K/uL (4.8-10.8)
[2022-03-04 03:43] LABS: ALBUMIN 1.9 g/dL (3.5-5.0); BILIRUBIN,TOTAL 1.6 mg/dL (0.2-1.0); POTASSIUM 3.5 mmol/L (3.5-5.1); TOTAL PROTEIN, SERUM 5.2 g/dL (6.0-8.3)
[2022-03-04] MEDS: IPRATROPIUM 0.5 MG/2.5 ML INH IH SCH ×4 (06:20→23:19)
[2022-03-04] MEDS: LEVOTHYROXINE 25 MCG TABLET NG SCH (07:26)
[2022-03-04] MEDS: LEVOTHYROXINE 125 MCG TABLET NG SCH (07:26)
[2022-03-04] MEDS: MIDODRINE HCL 5 MG TABLET PO SCH ×3 (07:26→21:19)
[2022-03-04] MEDS: INSULIN HUMULIN R 100 UNIT/ML 3ML SQ SCH ×3 (07:27→17:54)
[2022-03-04] MEDS: DEXAMETHASONE SOD PHOSPHATE 4 MG/ML 1ML VIAL IV SCH (09:07)
[2022-03-04] MEDS: APIXABAN 2.5 MG TABLET PO SCH ×2 (09:07→21:20)
[2022-03-04] MEDS: ZOSYN 3.375GM +NS 50ML IV SCH ×2 (09:07→21:19)
[2022-03-04] MEDS: ASPIRIN 81MG CHEW TAB PO SCH (09:07)
[2022-03-04] MEDS: BALSAM PERU/CASTOR OIL 60 GM TUBE TP SCH ×2 (09:08→21:20)
[2022-03-04] MEDS: FAMOTIDINE 20MG VIAL IV SCH (21:19)
[2022-03-04] MEDS: ATORVASTATIN 40 MG TABLET NG SCH (21:20)
[2022-03-05] VITALS (20 sets, daily range): BP systolic 84–146; BP diastolic 31–66
[2022-03-05] MEDS: INSULIN HUMULIN R 100 UNIT/ML 3ML SQ SCH ×3 (03:50→12:00)
[2022-03-05 05:52] LABS: BASOPHILS % (AUTO) 0.1 % (0.0-5.0); EOSINOPHILS % (AUTO) 0.1 % (0.0-8.0); HEMATOCRIT 27.4 % (36-48); LYMPHOCYTES % (AUTO) 5.1 % (21.0-51.0); MEAN CORPUSCULAR HEMOGLOBIN 31.5 pg (27.0-33.0); MEAN CORPUSCULAR HGB CONC 31.4 g/dL (32.0-36.0); MEAN CORPUSCULAR VOLUME 100.4 fL (79-99); MONOCYTES % (AUTO) 9.5 % (3.0-13.0); NEUTROPHILS % (AUTO) 84.2 % (40.0-77.0); NUCLEATED RED BLOOD CELLS 0.1 % (0.0-0.19); PLATELET COUNT (AUTO) 102 K/uL (130-400); RED BLOOD CELL COUNT(AUTO) 2.73 MIL/uL (4.00-5.50); RED CELL DISTRIBUTION WIDTH 24.7 % (11.0-15.5); WHITE BLOOD COUNT (AUTO) 14.1 K/uL (4.8-10.8)
[2022-03-05 06:01] LABS: ALBUMIN 1.9 g/dL (3.5-5.0); BILIRUBIN,TOTAL 1.2 mg/dL (0.2-1.0); CREATININE 3.5 mg/dL (0.5-1.5); MAGNESIUM 2.2 mg/dL (1.80-2.40); PHOSPHORUS 3.7 mg/dL (2.5-4.9); POTASSIUM 3.5 mmol/L (3.5-5.1); TOTAL PROTEIN, SERUM 5.1 g/dL (6.0-8.3)
[2022-03-05] MEDS: LEVOTHYROXINE 125 MCG TABLET NG SCH (06:19)
[2022-03-05] MEDS: LEVOTHYROXINE 25 MCG TABLET NG SCH (06:19)
[2022-03-05] MEDS: MIDODRINE HCL 5 MG TABLET PO SCH (06:20)
[2022-03-05] MEDS: IPRATROPIUM 0.5 MG/2.5 ML INH IH SCH ×3 (06:33→18:13)
[2022-03-05] MEDS: ZOSYN 3.375GM +NS 50ML IV SCH (09:00)
[2022-03-05] MEDS ORDERED: 0.9%NACL 1000ML 1,000 ML IV ONE (10:56)
[2022-03-05] MEDS ORDERED: ALBUMIN (HUMAN) 25% 100 ML IV PRN (11:30)
[2022-03-05] MEDS: EPOETIN ALFA-EPBX (ESRD) 10,000 UNIT/ML VIAL SQ SCH (12:43)
[2022-03-05] MEDS: APIXABAN 2.5 MG TABLET PO SCH (14:26)
[2022-03-05] MEDS: ASPIRIN 81MG CHEW TAB PO SCH (14:27)
[2022-03-05] MEDS ORDERED: EPOETIN ALFA-EPBX (ESRD) 10,000 UNIT/ML VIAL SQ ONE (15:00)
== END 2022-03-05 19:01 | DRG 235 ==
LOC: 2DH 21:31 → 2CV 02-19 12:48 → 2BH 02-20 17:45 → 2CH 02-24 23:07 → 2DH 03-01 16:06 → 2AH 03-02 00:58
PROVIDERS: ADMIT Internal Medicine Pulmonary Disease; ATTEND Internal Medicine Pulmonary Disease
PROC: 06BQ4ZZ Excision of Left Saphenous Vein, Percutaneous Endoscopic Approach (ICD-10-PCS; 2022-02-19)
PROC: 06BP4ZZ Excision of Right Saphenous Vein, Percutaneous Endoscopic Approach (ICD-10-PCS; 2022-02-19)
PROC: 5A1221Z Performance of Cardiac Output, Continuous (ICD-10-PCS; 2022-02-19)
PROC: 30233N1 Transfusion of Nonautologous Red Blood Cells into Peripheral Vein, Percutaneous Approach (ICD-10-PCS; 2022-02-19)
PROC: 0W9B3ZZ Drainage of Left Pleural Cavity, Percutaneous Approach (ICD-10-PCS; 2022-02-19)
PROC: 03HY33Z Insertion of Infusion Device into Upper Artery, Percutaneous Approach (ICD-10-PCS; 2022-02-19)
PROC: 02100Z8 Bypass Coronary Artery, One Artery from Right Internal Mammary, Open Approach (ICD-10-PCS; principal; 2022-02-19 12:00)
PROC: 02100Z9 Bypass Coronary Artery, One Artery from Left Internal Mammary, Open Approach (ICD-10-PCS; 2022-02-19 12:00)
PROC: 021009W Bypass Coronary Artery, One Artery from Aorta with Autologous Venous Tissue, Open Approach (ICD-10-PCS; 2022-02-19 12:00)
PROC: 5A1D70Z Performance of Urinary Filtration, Intermittent, Less than 6 Hours Per Day (ICD-10-PCS; 2022-02-21)
PROC: 5A1D70Z Performance of Urinary Filtration, Intermittent, Less than 6 Hours Per Day (ICD-10-PCS; 2022-02-22)
PROC: 5A1955Z Respiratory Ventilation, Greater than 96 Consecutive Hours (ICD-10-PCS; 2022-02-22)
PROC: 0BH17EZ Insertion of Endotracheal Airway into Trachea, Via Natural or Artificial Opening (ICD-10-PCS; 2022-02-22)
PROC: 5A1D70Z Performance of Urinary Filtration, Intermittent, Less than 6 Hours Per Day (ICD-10-PCS; 2022-02-24)
PROC: 30233K1 Transfusion of Nonautologous Frozen Plasma into Peripheral Vein, Percutaneous Approach (ICD-10-PCS; 2022-02-24)
PROC: 30233R1 Transfusion of Nonautologous Platelets into Peripheral Vein, Percutaneous Approach (ICD-10-PCS; 2022-02-24)
PROC: 5A1D70Z Performance of Urinary Filtration, Intermittent, Less than 6 Hours Per Day (ICD-10-PCS; 2022-02-26)
PROC: 5A1D70Z Performance of Urinary Filtration, Intermittent, Less than 6 Hours Per Day (ICD-10-PCS; 2022-02-28)
PROC: 5A09357 Assistance with Respiratory Ventilation, Less than 24 Consecutive Hours, Continuous Positive Airway Pressure (ICD-10-PCS; 2022-03-01)
PROC: 5A09357 Assistance with Respiratory Ventilation, Less than 24 Consecutive Hours, Continuous Positive Airway Pressure (ICD-10-PCS; 2022-03-02)
PROC: 5A1D70Z Performance of Urinary Filtration, Intermittent, Less than 6 Hours Per Day (ICD-10-PCS; 2022-03-03)
PROC: 5A09357 Assistance with Respiratory Ventilation, Less than 24 Consecutive Hours, Continuous Positive Airway Pressure (ICD-10-PCS; 2022-03-03)
PROC: 5A09357 Assistance with Respiratory Ventilation, Less than 24 Consecutive Hours, Continuous Positive Airway Pressure (ICD-10-PCS; 2022-03-04)
PROC: 5A1D70Z Performance of Urinary Filtration, Intermittent, Less than 6 Hours Per Day (ICD-10-PCS; 2022-03-05)
PROC: 5A09357 Assistance with Respiratory Ventilation, Less than 24 Consecutive Hours, Continuous Positive Airway Pressure (ICD-10-PCS; 2022-03-05)
DX: I25.10 Atherosclerotic heart disease of native coronary artery without angina pectoris (principal); N18.6 End stage renal disease; G92.8 Other toxic encephalopathy; I50.23 Acute on chronic systolic (congestive) heart failure; J95.1 Acute pulmonary insufficiency following thoracic surgery; J96.00 Acute respiratory failure, unspecified whether with hypoxia or hypercapnia; I13.2 Hypertensive heart and chronic kidney disease with heart failure and with stage 5 chronic kidney disease, or end stage renal disease; D68.9 Coagulation defect, unspecified; I48.92 Unspecified atrial flutter; J93.9 Pneumothorax, unspecified; J91.8 Pleural effusion in other conditions classified elsewhere; E11.22 Type 2 diabetes mellitus with diabetic chronic kidney disease; Z99.2 Dependence on renal dialysis; E03.9 Hypothyroidism, unspecified; D69.6 Thrombocytopenia, unspecified; E11.51 Type 2 diabetes mellitus with diabetic peripheral angiopathy without gangrene; Z79.4 Long term (current) use of insulin; E78.5 Hyperlipidemia, unspecified; E83.42 Hypomagnesemia; I48.0 Paroxysmal atrial fibrillation; Z79.899 Other long term (current) drug therapy; E11.21 Type 2 diabetes mellitus with diabetic nephropathy; I25.5 Ischemic cardiomyopathy; L89.152 Pressure ulcer of sacral region, stage 2; Z95.0 Presence of cardiac pacemaker; D63.8 Anemia in other chronic diseases classified elsewhere; D69.59 Other secondary thrombocytopenia; E11.65 Type 2 diabetes mellitus with hyperglycemia; E78.00 Pure hypercholesterolemia, unspecified; I95.81 Postprocedural hypotension; R13.10 Dysphagia, unspecified; K80.20 Calculus of gallbladder without cholecystitis without obstruction; Z91.81 History of falling
CPT/HCPCS: 31500; 36415; 36430; 36600; 71045; 74018; 74230; 80048; 80053; 80061; 82140; 82330; 82435; 82803; 82947; 82948; 83605; 83735; 83880; 84100; 84132; 84295; 85014; 85018; 85025; 85027; 85347; 85520; 85610; 85730; 86022; 86704; 86706; 86850; 86900; 86901; 86923; 86927; 87040; 87071; 87205; 87340; 87635; 90935; 92526; 92610; 92611; 93005; 93306; 93880; 94002; 94003; 94010; 94150; 94640; 94660; 94664; 97039; A7048; C1751; C1894; G0378; J0171; J0330; J0610; J0690; J1100; J1250; J1265; J1644; J1815; J2001; J2060; J2250; J2405; J2440; J2543; J2704; J2720; J3010; J3430; J3475; J3480; J3490; J7030; J7040; J7050; J7060; J7120; P9016; P9017; P9034; P9045; P9046